=== PATIENT | female | born 1985 | race Caucasian/White ===

== ENCOUNTER 2018-07-09 11:05 | Emergency (ER) | payer OTHER ==
[~2018-07-09] VITALS: Ht 157.5 cm; Wt 70.6 kg
[2018-07-09 11:18] VITALS: BP 115/73
[2018-07-09] MEDS ORDERED: LIDOCAINE-MPF 1%, 5ML ONE (11:46)
[2018-07-09] MEDS ORDERED: LIDOCAINE-MPF 1%, 5ML INFIL ONE (12:00)
== END 2018-07-09 12:29 | disposition home or self-care (01) ==
LOC: ED 12:18
DX: S01.81XA Laceration without foreign body of other part of head, initial encounter (principal); W01.190A Fall on same level from slipping, tripping and stumbling with subsequent striking against furniture, initial encounter; Y93.89 Activity, other specified; Y92.89 Other specified places as the place of occurrence of the external cause; Y99.8 Other external cause status
CPT/HCPCS: 12013; 99283

== ENCOUNTER 2018-07-15 15:08 | Emergency (ER) | payer OTHER ==
[~2018-07-15] VITALS: Ht 157.5 cm; Wt 72.2 kg
[2018-07-15 15:10] VITALS: BP 115/77
== END 2018-07-15 15:49 | disposition home or self-care (01) ==
LOC: ED 15:43
DX: S01.81XD Laceration without foreign body of other part of head, subsequent encounter (principal)
CPT/HCPCS: 99281

== ENCOUNTER 2019-10-07 01:19 | Emergency (ER) | payer OTHER ==
[~2019-10-07] VITALS: Ht 157.5 cm; Wt 76.7 kg
[~2019-10-07 01:19] MED LIST: IBUP-1222 PO
[2019-10-07] MEDS ORDERED: IBUPROFEN 800 MG TABLET ONE (01:49)
--- NOTE | 2019-10-07 01:50 | NUR ---
THIS IS A 34 YO FEMALE COMING IN FOR VAGINAL BLEEDING SINCE 830PM. PATIENT STATES "WE WERE HAVING SEX AND IT STARTED BLEEDING". PATIENT DENIES ANY TRAUMA, DID NOT FEEL ANYTHING TEAR OR POP, NO PAIN. PATIENT RECENTLY GAVE IN EARLY AUGUST WITHOUT COMPLICATIONS, DENIES TEARING IN OR ANY STITCHES, STATES THIS IS NOT THE FIRST TIME HAVING SEX SINCE . A&OX4, VSS, DENIES SOB OR CP, PLACED ON GYNNIE BED WITH CHUCKS PADS UNDERNEATH, BLEEDING NOTICED ON PAD, PATIENT BLEEDING FROM VAGINA WHILE CHANGING IN TO GOWN. CALL LIGHT IN REACH, DENIES NEEDS AT THIS TIME
--- NOTE | 2019-10-07 02:08 | NUR ---
PATIENT IN US
[2019-10-07 02:15] LABS: BASOPHILS # (AUTO) 0.03 x10^3/uL (0-0.1); BASOPHILS % (AUTO) 0 % (0-1); EOSINOPHILS # (AUTO) 0.19 x10^3/uL (0-0.4); EOSINOPHILS % (AUTO) 2 % (1-7); LYMPHOCYTES # (AUTO) 3.35 x10^3/uL (1-3.4); LYMPHOCYTES % (AUTO) 29 % (22-44); MD NO; MEAN CORPUSCULAR HEMOGLOBIN 29.6 pg (27.0-34.8); MEAN CORPUSCULAR VOLUME 89.7 fL (80-100); MEAN PLATELET VOLUME 10.1 fL (7.4-10.4); MONOCYTES % (AUTO) 5 % (2-9); NEUTROPHILS # (AUTO) 7.37 x10^3/uL (1.8-6.8); NEUTROPHILS % (AUTO) 64 % (42-75); PLATELET COUNT 175 x10^3/uL (130-400); RED CELL DISTRIBUTION WIDTH 13.3 % (9.6-15.2)
[2019-10-07 02:22] LABS: ALANINE AMINOTRANSFERASE 25 U/L (12-78); ALBUMIN 3.3 g/dL (3.4-5.0); ANION GAP 7 mmol/L (5-15); CALCIUM 8.1 mg/dL (8.5-10.1); CHLORIDE 109 mmol/L (98-107); CREATININE 0.88 mg/dL (0.55-1.02)
[2019-10-07 02:26] LABS: ALKALINE PHOSPHATASE 133 U/L (45-117); BILIRUBIN,TOTAL 0.2 mg/dL (0.2-1.0); TOTAL PROTEIN 7.3 g/dL (6.4-8.2)
--- NOTE | 2019-10-07 02:56 | NUR ---
PELVIC EXAM PERFORMED BY DR. PINEDA WITH FEMALE RN IN ROOM. PATIENT AMBULATORY WITH STEADY GAIT TO RESTROOM
--- NOTE | 2019-10-07 03:22 | NUR ---
PATIENT C/O NAUSEA, "CAN'T FEEL MY LIPS", AND ULQ ABD PAIN RATED 7/10 THAT CAME ON SUDDENTLY. MD EDWIN TO ROOM AT THIS TIME AND AWARE
[2019-10-07] MEDS ORDERED: ONDANSETRON ODT 4 MG PO ONE (03:30)
[2019-10-07 03:34] LABS: CULTURE INDICATED? YES; MICROSCOPIC INDICATED
[2019-10-07] MEDS ORDERED: ONDANSETRON ODT 4 MG ONE (03:44)
--- NOTE | 2019-10-07 03:50 | NUR ---
PATIENT MEDICATED PER EMAR FOR NAUSEA, TOLERATED WELL
[2019-10-07 04:58] VITALS: BP 100/66
--- NOTE | 2019-10-07 04:58 | NUR ---
Patient/Caregiver given discharge instructions and they have confirmed that they understand the instructions. Patient ambulatory with steady gait.
== END 2019-10-07 05:00 | disposition home or self-care (01) ==
LOC: ED 04:10
DX: N93.0 Postcoital and contact bleeding (principal)
CPT/HCPCS: 36415; 76830; 80053; 81001; 84703; 85025; 87086; 99284; Q0162